=== PATIENT | female | born 1955 | race Caucasian/White ===

== ENCOUNTER → 2020-03-15 | Outpatient (CLI) | payer BC ==
--- NOTE | 2020-03-15 16:17 | RAD ---
Left foot 2 views: Reason for examination: Left foot pain. No acute fracture or dislocation is seen. The bone density is normal. No abnormal periosteal reaction is seen. Joint spaces are maintained. IMPRESSION: No acute abnormality evident at the left foot Electronically signed by: Millicent Arias MD (03/15/2020 4:14 PM) [id number]
== END ==
LOC: RAD 15:40
PROVIDERS: ATTEND Physician Assistant Medical
DX: M79.672 Pain in left foot (principal)
CPT/HCPCS: 73620

== ENCOUNTER 2020-12-24 11:12 | Emergency (ER) | payer MEDICARE, BC ==
[~2020-12-24] VITALS: Ht 170.2 cm; Wt 84.5 kg
--- NOTE | 2020-12-24 11:29 | PHYS DOC ---
General Adult EDM: Chief Complaint: LOWEREXTREMITY INJURY HPI: HPI: Patient is a 65 year old female who presents with right ankle pain and swelling. Was stepping out of her truck onto her right ankle and felt a pop and had immediate pain. She has been able to gingerly walk on the ankle since. Pain is over the lateral portion. She has noticed quick onset of swelling. No other injuries. Did not fall. No head strike. No previous surgeries on this ankle. Review of Systems: Review of Systems: Constitutional: Denies fever or chills Eyes: Denies change in visual acuity HENT: Denies nasal congestion or sore throat Respiratory: Denies cough or shortness of breath Cardiovascular: Denies chest pain or edema GI: Denies abdominal pain, nausea, vomiting, bloody stools or diarrhea : Denies dysuria Musculoskeletal: Complains of right ankle pain and swelling Integument: Denies rash Neurologic: Denies headache, focal weakness or sensory changes Endocrine: Denies polyuria or polydipsia Lymphatic: Denies swollen glands Psychiatric: Denies depression or anxiety Physical Exam: PE: Constitutional:no acute distress, non-toxic appearance. [] HENT: Normocephalic, atraumatic, Eyes: conjunctiva normal, no discharge. [] Neck: supple, no stridor. [] Cardiovascular:Heart rate regular rhythm, no murmur [] Lungs & Thorax: Normal work of breathing [] Extremities: Right lower extremity with distal lateral malleoli tenderness posteriorly. Large amount of swelling overlying the lateral malleolus and just anterior and posterior to the lateral malleolus. Slight pain with flexion and extension at the ankle. DP pulse 2+. [] Neurologic: Alert and oriented X 3, normal motor function, normal sensory function, no focal deficits noted. [] Psychologic: Affect normal, judgement normal, mood normal. [] EKG: EKG: [] Radiology/Procedures: Radiology/Procedures: [] Impressions: [address] [address] IMAGING REPORT Signed PATIENT: JIMMIE BERMAN GACCOUNT: [id number] : 1955 LOCATION: ER AGE: 65 SEX: F EXAM STATUS: PRE ER ORD. PHYSICIAN: DIAMANTE WEEMS MD REASON: lateral malleolar pain/swelling PROCEDURE: ANKLE RIGHT 3V XR EXAM OF ANKLE_RIGHT 3VIEWS History: Lateral malleolar pain/swelling. Comparison: None. Technique: 3 views of right ankle. Findings: Osseous mineralization is normal. No fracture or dislocaton. Ankle mortise and talar dome are intact. Plantar calcaneal enthesophyte. Anterior and lateral ankle soft tissue swelling. Impression: 1. Soft tissue swelling without acute osseous abnormality of the right ankle. Electronically signed by: Guido Weber MD (12/24/2020 11:41 AM) [id number] DICTATED AND SIGNED BY: GUIDO WEBER MD DATE: 12/24/20 1140 CC: DIAMANTE WEEMS MD; MIKE JONES ~MTH0 0 Heart Score: C/O Chest Pain: No Risk Factors: Risk Factors: DM, Current or recent (<one month) smoker, HTN, HLP, family history of CAD, obesity. Risk Scores: Score 0 - 3: 2.5% MACE over next 6 weeks - Discharge Home Score 4 - 6: 20.3% MACE over next 6 weeks - Admit for Clinical Observation Score 7 - 10: 72.7% MACE over next 6 weeks - Early Invasive Strategies Course & Med Decision Making: Course & Med Decision Making Pertinent Labs and Imaging studies reviewed. (See chart for details) Patient is 65-year-old female who presents with right ankle pain and lateral malleolus swelling after stepping awkwardly out of a truck. Will obtain plain films to determine fracture vs sprain. [id number] Chris Disclaimer: Chris Disclaimer: This electronic medical record was generated, in whole or in part, using a voice recognition dictation system. Departure Departure: Impression: Primary Impression: Right ankle sprain Referrals: MIKE JONES (PCP) Patient Instructions: Ankle Sprain Additional Instructions: Please wear the Aircast until you can follow-up with your regular doctor. You have sprained your ankle. You may need to rest your ankle for it to improve. For pain tylenol and ibuprofen are best used on a schedule. Please alternate between the two. -Tylenol 1000 mg every 6 hours (do not exceed 4000 mg in one day) -Ibuprofen 400 mg every 6 hours. Take with food. Do not take for more than 1 week. DIAMANTE WEEMS MD Dec 24, 2020 11:29
--- NOTE | 2020-12-24 11:43 | RAD ---
XR EXAM OF ANKLE_RIGHT 3VIEWS History: Lateral malleolar pain/swelling. Comparison: None. Technique: 3 views of right ankle. Findings: Osseous mineralization is normal. No fracture or dislocaton. Ankle mortise and talar dome are intact. Plantar calcaneal enthesophyte. Anterior and lateral ankle soft tissue swelling. Impression: 1. Soft tissue swelling without acute osseous abnormality of the right ankle. Electronically signed by: Guido Sadler MD (12/24/2020 11:41 AM) [id number]
[2020-12-24 12:05] VITALS: BP 119/69
== END 2020-12-24 12:10 | disposition home health service (06) ==
LOC: ER 11:12
DX: S93.401A Sprain of unspecified ligament of right ankle, initial encounter (principal); W22.8XXA Striking against or struck by other objects, initial encounter; Y93.89 Activity, other specified; Y92.89 Other specified places as the place of occurrence of the external cause; Y99.8 Other external cause status
CPT/HCPCS: 29515; 73610; 99283